=== PATIENT | male | born 1950 | race Caucasian/White ===

== ENCOUNTER 2016-04-25 10:51 | Inpatient (IN) | payer OTHER ==
[2016-04-21 11:08] LABS: HEMATOCRIT 37.3 % (40.0-51.0); HEMOGLOBIN 12.9 g/dL (13.6-17.8)
[2016-04-21 11:20] LABS: BUN (BLOOD UREA NITROGEN) 18 MG/DL (6-23); CHLORIDE, SERUM 102 MMOL/L (96-112); CO2 (CARBON DIOXIDE) 29 MMOL/L (24-34); CREATININE 1.13 MG/DL (0.70-1.30); GFR AFRICAN AMERICAN 80 ML/MIN (>=60); GFR NON AFRICAN AMERICAN 69 ML/MIN (>=60); GLUCOSE, SERUM 110 MG/DL (60-99); POTASSIUM, SERUM 4.3 MMOL/L (3.5-5.3); SODIUM, SERUM 140 MMOL/L (135-148)
--- NOTE | ~2016-04-25 | OP ---
Record Of Operation [facility] [address] [place]. [address] NAME: ALIA METZ : 54 STATUS : ADM IN PAT#: [id number] AGE: 65 ADM/REG DATE : 04/25/16 MR#: [id number] REPORT SERV DATE: 04/28/16 DICTATED BY: SOLANGE LANTIGUA II DATE: 04/27/16 REPORT STATUS : Draft TRANSCRIBED BY: MODL DATE: 04/27/16 DATE OF PROCEDURE: 04/25/2016 PREOPERATIVE DIAGNOSES: 1. L1-L2 focal kyphosis with degenerative disk disease above previous L2-S1 fusion. 2. Adjacent segment degeneration, L1-L2 with associated focal kyphosis. 3. Sagittal imbalance. 4. History of failed spinal column stimulator trial, complicated by epidural abscess, thoracolumbar with subsequent laminectomy for evacuation. POSTOPERATIVE DIAGNOSES: 1. L1-L2 focal kyphosis with degenerative disk disease above previous L2-S1 fusion. 2. Adjacent segment degeneration, L1-L2 with associated focal kyphosis. 3. Sagittal imbalance. 4. History of failed spinal column stimulator trial, complicated by epidural abscess, thoracolumbar with subsequent laminectomy for evacuation. PROCEDURE: 1. T10-T11, T11-T12, T12-L1, L1, L2, posterior spinal arthrodesis. 2. Facetectomies including Hobson-Anthony osteotomies, L1-L2, T12-L1. 3. Posterior spinal instrumentation, T10-L2. 4. Use of local autograft, allograft substitute, and bone morphogenetic protein. 5. Use of the stereotactic spinal imaging system. SURGEON: Solange Lantigua M.D. IV FLUIDS: Two liters lactated Ringer's. ESTIMATED BLOOD LOSS: 300 mL. DRAINS: One. IMPLANTS: Alphatec. COMPLICATIONS: None. PREOPERATIVE HISTORY: This is a very friendly 65-year-old gentleman, who reports increasing low back pain. He reports the pain is higher than it used to be. He reports that he is unable to stand straight up. He reports this became worse following his irrigation and debridement for his thoracolumbar epidural abscess. Unfortunately, after his spinal column stimulator lead trial, he developed an epidural abscess. Overall, his focal kyphosis at L1- L2 appears to be largely degenerative, but with a component of likely post laminectomy instability. We discussed the pros and cons of surgery. He has a very difficult and complicated surgical past and overall, he has continued to perceiver and do his best at improving. He is overall functional and I applauded him on his efforts despite his complicated surgical past. Record Of Operation [facility] [place]. [address] NAME: ALIA METZ : 54 STATUS : ADM IN PAT#: [id number] AGE: 65 ADM/REG DATE : 04/25/16 MR#: [id number] REPORT SERV DATE: 04/28/16 DICTATED BY: SOLANGE LANTIGUA II DATE: 04/27/16 REPORT STATUS : Draft TRANSCRIBED BY: MADYSON DATE: 04/27/16 DESCRIPTION OF PROCEDURE: After informed consent was obtained, the patient was brought to the operating room at his request and general anesthesia achieved. He was placed in the prone position and the back was prepped and draped in a sterile fashion. The midline incision was made from approximately T9 down to L3. Subperiosteal exposure was completed from T10 down to L3. At this point, we then placed the stereotactic spinal clamp onto T9 and the intraoperative CT scan was completed, and stereotactic guidance then used throughout the remainder of the case. At this point, we then began placing pedicle screws. We placed pedicle screws from T10 down to L1 on the right and down to L2 on the left. We then repeated the CT scan and acceptable positioning noted of the pedicle screws. At this point, the Hobson-Anthony osteotomies including facetectomies were performed for sagittal balance reasons at T12-L1 and L1-L2. The wide decompression was performed, including resection of the pars. This increased the flexibility of the kyphosis and overall, I felt would allow for a better correction following under contouring of the rods. At this point, the rods were then under contoured and the [employer] tiff to tiff connectors employed. We attached these tiff to tiff connectors bilaterally to allow continuation of the construct up to T10 so as to avoid having to dissect down to S1. At this point, the final tightening was performed and again, the under contouring of the rods performed and a very reasonable sagittal correction obtained. At this point, copious irrigation was performed. The decortication was now performed at T10, T11, T12, L1 and L2. Local autograft, allograft substitute, and bone morphogenetic protein were then placed bilaterally. A deep drain was placed followed by standard closure, and the patient was then extubated and transferred to PACU in stable condition. SAMANTA/MADYSON Solange Lantigua II, M.D. / [id number] CC: Nohemi Evans II, N.P.
--- NOTE | ~2016-04-25 | CN ---
Consultation Report [facility] [id number] [place]. [address] NAME: ALIA CHRISTINE : 54 STATUS : DIS IN PAT#: [id number] AGE: 65 ADM/REG DATE : 04/25/16 MR#: [id number] REPORT SERV DATE: 05/10/16 DICTATED BY: JAMES YBARRA DATE: 05/10/16 REPORT STATUS : Draft TRANSCRIBED BY: MODElizabeth DATE: 05/10/16 GI CONSULTATION NOTE DATE OF CONSULTATION: 04/30/2016 REASON FOR CONSULTATION: Dysphagia. HISTORY OF PRESENT ILLNESS: Mr. Christine is a 65-year-old gentleman with a history of kyphosis, encephalopathy, and reflux disease. GI has been consulted for further evaluation of his dysphagia. He reports difficulty swallowing with impact sensation as well as some mild regurgitation, which has been a chronic issue for him. No swallowing study has been done, however, this admission. PAST MEDICAL HISTORY: Kyphosis, encephalopathy, gastroesophageal reflux disease. FAMILY HISTORY: Noncontributory. MEDICATIONS: Reviewed. ALLERGIES: REVIEWED. PHYSICAL EXAMINATION: VITAL SIGNS: The patient is afebrile. His vital signs are stable. GENERAL: The patient is awake, alert, well developed, well nourished. HEENT: Atraumatic, normocephalic. Anicteric. Mucous membranes moist. CARDIAC: S1, S2. CHEST: Clear. ABDOMEN: Soft, obese, nontender, nondistended. Bowel sounds normoactive. LABORATORY DATA: Reviewed. IMPRESSION AND PLAN: Dysphagia of unclear etiology. Indeterminate whether this has oropharyngeal versus esophageal. Would recommend schedule a modified barium swallow to see if he has some oropharyngeal contribution or factor precipitating leading towards his symptoms especially given his history of kyphosis and encephalopathy. I have taken the liberty of ordering a modified barium swallow with speech pathology. I discussed this with the patient and his nurse. Questions and concerns were addressed. We will continue to follow. ZAYNAB/MADYSON James Consultation Report [facility] [id number] [place]. [address] NAME: ALIA CHRISTINE : 54 STATUS : DIS IN PAT#: [id number] AGE: 65 ADM/REG DATE : 04/25/16 MR#: [id number] REPORT SERV DATE: 05/10/16 DICTATED BY: JAMES YBARRA DATE: 05/10/16 REPORT STATUS : Draft TRANSCRIBED BY: MODL DATE: 05/10/16 MD Ailyn / [id number] CC: Nohemi Evans II, N.P.
--- NOTE | ~2016-04-25 | DS ---
Discharge Summary [facility] [address] [place]. [address] NAME: ALIA METZ : 54 STATUS : DIS IN PAT#: [id number] AGE: 65 ADM/REG DATE : 04/25/16 MR#: [id number] REPORT SERV DATE: 05/15/16 DICTATED BY: SOLANGE LANTIGUA II DATE: 05/14/16 REPORT STATUS : Draft TRANSCRIBED BY: MODElizabeth DATE: 05/14/16 Data Collection from hospitalization DISCHARGE DIAGNOSES: 1. L1-L2 focal kyphosis with degenerative disk disease above previous L2-S1 fusion. 2. Adjacent segment degeneration, L1-L2 with associated focal kyphosis. 3. Sagittal imbalance. 4. History of failed spinal column stimulator trial complicated by epidural abscess, thoracolumbar with subsequent laminectomy for evacuation. 5. Hypertension. 6. Former smoker. 7. Gastroesophageal reflux disease. 8. Osteoarthritis. CONSULTATIONS: 1. Teresa Robertson M.D. 2. Violette Perez M.D. PROCEDURES: 1. T10-T11, T11-T12, T12-L1, and L1 and L2 posterior spinal arthrodesis. Facetectomies including Hobson-Anthony osteotomy L1-L2, T12-L1. Posterior spinal instrumentation T10- L2. Use of local autograft, allograft substitute, and bone morphogenic protein. Use of stereotactic spinal imaging system 04/25/2016. 2. CT scan of the brain without contrast 04/27/2016. 3. CTA of the chest 04/27/2016. 4. Barium swallow esophagram 04/28/2016. 5. Modified barium swallow study 05/01/2016. 6. MRI of the brain without contrast 05/02/2016. 7. MRAG of the head without contrast 05/02/2016. 8. MRAG of the head of the neck with contrast 05/02/2016. 9. Modified barium swallow study 05/05/2016. PATHOLOGY: Bone and tissue; lumbar spine-dense fibrous connective tissue, focally atrophic skeletal muscle and bone present. DISCHARGE MEDICATIONS: Baclofen 20 mg three times a day, Butrans one patch topically every seven days, Catapres 0.1 mg twice a day, Neurontin 900 mg three times a day, Medrol one package as directed, Movantik 25 mg daily, Roxicodone 15 mg every four hours as needed, potassium gluconate one tablet daily, Phenergan 25 mg every six hours as needed, Mestinon 60 mg three times a day, Zantac 300 mg twice a day, Carafate 1 g before meals and at bedtime, Flomax 0.4 mg daily, and Ambien 10 mg at bedtime. CONDITION AT DISCHARGE: Stable. DISPOSITION: The patient was discharged home on a pureed diet with activities as instructed. He would follow up with me on 05/19/2016. HOSPITAL COURSE: This is a 65-year-old man who had been complaining of thoracic and lumbar- Discharge [address] [address] NAME: ALIA METZ : 54 STATUS : DIS IN PAT#: [id number] AGE: 65 ADM/REG DATE : 04/25/16 MR#: [id number] REPORT SERV DATE: 05/15/16 DICTATED BY: SOLANGE LANTIGUA II DATE: 05/14/16 REPORT STATUS : Draft TRANSCRIBED BY: MADYSON DATE: 05/14/16 related symptoms. His symptoms are located at the mid and lower back and he had associated numbness and tingling. The patient reports that they were seen in the office three weeks prior to this admission. He reported the pain level as a 7 on a scale of 0 to 10. The patient has low back pain and lower extremity radiculopathy as well as focal kyphosis above the old fusion and sagittal imbalance. Treatment options were discussed and it was elected to proceed with surgical intervention. He was admitted to the hospital at this time for further evaluation and treatment. Upon admission, he was taken to the operating room where he underwent the above-mentioned procedure. He tolerated this well. There were no complications. On postop day 1, the patient did not want to participate with Physical Therapy. On 04/27/2016, he was seen by Dr. Violette Perez for rapid response. The patient said "I am choking." The patient was then examined at the bedside, and he did complain of severe choking sensation in the throat, but no chest pain. He seemed extremely anxious and wanted to sit up because lying down made him dizzy, choking sensation even more. At his bedside, he denied any headaches, chest pain, shortness of breath, abdominal pain, nausea, or vomiting. He said he felt like throwing up and nothing was coming up. He seemed to be in extreme distress. He was given Ativan to calm him down, so that he could lie back. He suspected that the patient may have acute coronary syndrome/acute stroke. An EKG did not show any evidence of acute ST-T changes. There was a lot of tremulousness noted on the EKG. BMP and troponin I came back within fairly normal limits. He had a drop in his H and H. a CT scan of the brain without contrast was performed as well as a CTA of the chest. The patient did improve with Ativan. On 04/28/2016, MS Contin was added to his regimen. He continued to complain of a choking sensation. Barium swallow esophagram was performed. He had a mild left facial droop, but no other deficits. MRI of the brain was requested. Dysphagia resolved. He was evaluated by Physical Therapy. He was seen by Dr. Maggie Wynn. The patient's symptoms had improved with IV Ativan. He denied any focal weakness. T-max was 100. The encephalopathy had resolved. On 04/30/2016, he complained of recurrent dysphagia. He complained of feeling like food was stuck in his throat. The patient was seen by Dr. Teresa Robertson regarding dysphagia. He reported difficulty swallowing with impact sensation as well as some mild regurgitation, which had been a chronic issue for him. No swallowing study had been done; however, during this admission, the dysphagia was of unclear etiology. It was indeterminate whether it was oropharyngeal versus esophageal. She recommended that we schedule a modified barium swallow to see if he had some oropharyngeal contribution or factor precipitating leading towards his symptoms, especially given the history of kyphosis and encephalopathy. On 05/01/2016, a modified barium swallow study was performed. He still complained of difficulty swallowing due to a dry mouth. He also complained of nausea after taking Roxicodone. The CT scan of the brain had been negative. Modified barium swallow study was unremarkable. He could swallow clear liquids without difficulty. He had difficulty with solids due to a dry mouth. He complained of mucus that was thick and yellow. Speech- language pathology had evaluated the patient as well aspiration precautions remained in place. On 05/02/2016, he said he was feeling much better. He had been able to ambulate in the mensah a couple of times. Flomax was added to his regimen for urinary retention. A Nazario catheter was in place. He did complain of some constipation. He was no longer complaining of a sore throat. An MRI of the brain without contrast was performed as well as an MRAG of the head without contrast and MRAG of the neck without contrast. The next day, he Discharge Summary [facility] [address] [place]. [address] NAME: ALIA METZ : 54 STATUS : DIS IN PAT#: [id number] AGE: 65 ADM/REG DATE : 04/25/16 MR#: [id number] REPORT SERV DATE: 05/15/16 DICTATED BY: SOLANGE LANTIGUA II DATE: 05/14/16 REPORT STATUS : Draft TRANSCRIBED BY: MADYSON DATE: 05/14/16 complained of some low back pain. He had no nausea or vomiting. He did have a bowel movement, which improved his abdominal pain. He was ambulating with Physical Therapy. Nazario catheter was in place. Flomax was continued. He reported improved swallowing until his recent pain medications. His T-max was 99.1. Bedside dysphagia screening would be performed as well as a repeat modified barium swallow study. Dysphagia screening was completed. The patient had no difficulty swallowing at this time. On 05/04/2016, he said he was feeling better. He tolerated his pureed diet. Bladder training was going to be performed. He still had some difficulty with thick items, and but no coughing or choking. Mestinon and Solu-Medrol were continued for now. He had no chest pain or shortness of breath. The next day, he was stable except for his dysphagia. Modified barium swallow study was performed. Aspiration precautions remained in place. He continued to exhibit limited oropharyngeal muscle range of motion. Discharge planning was performed. Solu-Medrol was discontinued. Mestinon was continued. He appeared comfortable. His blood pressure was controlled. On 05/06/2016, he remained stable. He was alert and cooperative. He had no focal deficits. He said his swallowing had improved. Discharge instructions were given. Prednisone was being tapered. Due to his improved and stable condition, he was discharged home with the above-stated instructions. Information collected by: Savanah Smith I submit the above information as my discharge summary. XANDER/MADYSON Solange Lantigua II, M.D. / [id number] CC: Nohemi Evans II, N.P. Camille Sommer, MD
--- NOTE | ~2016-04-25 | CN ---
Consultation Report [facility] [address] [place]. [address] NAME: ALIA METZ : 54 STATUS : ADM IN PAT#: [id number] AGE: 65 ADM/REG DATE : 04/25/16 MR#: [id number] REPORT SERV DATE: 04/27/16 DICTATED BY: JUDITH NUGENT DATE: 04/27/16 REPORT STATUS : Draft TRANSCRIBED BY: MODL DATE: 04/27/16 CONSULTATION DATE OF CONSULTATION: 04/27/2016 REASON FOR CONSULTATION: Rapid response. HISTORY OF PRESENT ILLNESS: I was rounding on other patients on 3 , when I was called to respond to a rapid response as this patient said that "I am choking." I examined the patient at his bedside and the patient did complain of severe choking sensation in his throat, no chest pain, and seemed extremely anxious wanting to sit up, because lying down made him did the choking sensation even more. At his bedside, the patient denied any headaches chest pain, shortness of breath, abdominal pain, nausea, vomiting. He said that he is feeling like throwing up, but nothing is coming up. The patient has been admitted for lumbar spinal surgery and had decompression of the lumbar spine at L4-L5 nerve roots. Dr. Lantigua is the primary surgeon. The patient seems to be alert, but seems to be in extreme distress right now complaining of this choking sensation. We gave him 2 mg of Ativan to calm him down so that he could lay back, as I was suspecting an acute coronary syndrome/acute stroke in this patient. We were able to get an EKG on him that did not show any evidence of acute ST-T changes. There was a lot of tremulousness noted on the EKG. We ordered stat labs including BMP and troponin I, which came back within fairly normal limits. The only thing I see in his labs is a drop in his H and H. PHYSICAL EXAMINATION: VITAL SIGNS: On examination, his vital signs are stable. His blood pressure is fine, his oxygen saturation was low in the beginning when the nurse called a rapid response on him and was only 84% on room air, but has come back up to about 95% with 4 L of oxygen right now. A stat ABG that was ordered also shows PO2 of almost 80. HEENT: Unremarkable. As I was examining the patient at the bedside, his left arm felt limp and he was unable to squeeze my hand, as strongly with his left hand as he did with his right hand. There may have been a slight facial droop that I noticed on the left side of the face also. With a slight facial droop and a slight left arm weakness. I am suspecting acute stroke in this patient. CARDIOVASCULAR: S1 and S2 appreciated. Sinus rhythm. No murmurs, rubs, or gallops noted. RESPIRATORY: Clear lungs. No rales or rhonchi noted. ABDOMEN: Soft, nontender. Bowel sounds are appreciated. EXTREMITIES: There is no edema. BACK: I examined the wound there seems to be some oozing from the dressing and the dressing on the lumbar spinal surgical incision is soaked a little bit with blood. DIAGNOSTIC DATA: We got a chest x-ray on him stat portable which is also clear at this time. Consultation Report [address] [place]. [address] NAME: ALIA METZ : 54 STATUS : ADM IN [facility]#: [id number] AGE: 65 ADM/REG DATE : 04/25/16 MR#: [id number] REPORT SERV DATE: 04/27/16 DICTATED BY: JUDITH NUGENT DATE: 04/27/16 REPORT STATUS : Draft TRANSCRIBED BY: MADYSON DATE: 04/27/16 ASSESSMENT AND PLAN: 1. Acute choking sensation in this patient with near syncope, with the patient extremely anxious. We will go ahead and get a CT scan of the head stat to rule out stroke, neurologist has already been called. 2. We will also get a CT angiogram to rule out PE/dissecting aneurysm in this patient. We will also go ahead and give him 1 unit of PRBCs, give him supportive and symptomatic care at this time, and I will follow the patient. RRA/MODL Judith Nugent M.D. / [id number] CC: Vinicio Lantigua II, M.D.
[~2016-04-25 10:51] MED LIST: AMB10 PO; AVINZA30 PO; BACLOFEN20 MG PO; BEN25 PO; BUTRANS1 EAC2 TOP; CAT1 PO; FLEX PO; HCTZ25B PO; NAP500 PO; NEUR300 PO; NORCO1 TAB PO; P20 PO; PERCOCET 10/3251 TAB PO; POTASSIUM GLUCO99 MG PO; RANITIDINE300 MG PO; SEPTRA DS1 TAB PO; ULTRAM50 PO; VICODINTAB PO; VITAMIN B-122500 MCG SL
[2016-04-27 10:40] LABS: BUN (BLOOD UREA NITROGEN) 21 MG/DL (6-23); CHLORIDE, SERUM 113 MMOL/L (96-112); GFR AFRICAN AMERICAN 105 ML/MIN (>=60); GFR NON AFRICAN AMERICAN 91 ML/MIN (>=60); GLUCOSE, SERUM 109 MG/DL (60-99); POTASSIUM, SERUM 3.7 MMOL/L (3.5-5.3); SODIUM, SERUM 146 MMOL/L (135-148); TROPONIN I <0.02 NG/ML (<0.05)
[2016-04-27 10:43] LABS: CO2 (CARBON DIOXIDE) 21 MMOL/L (24-34)
[2016-04-27 10:55] LABS: CALCIUM, SERUM 6.8 MG/DL (8.5-10.4)
[2016-04-27 11:05] LABS: BASOPHILS 0 %; EOSINOPHILS 0 %; HEMATOCRIT 23.5 % (40.0-51.0); HEMOGLOBIN 7.9 g/dL (13.6-17.8); IMMATURE GRANULOCYTES 0.2 %; IMMATURE GRANULOCYTES ABSOLUTE 0.03 10/3/uL (0.0-0.11); LYMPHOCYTES 8.2 %; LYMPHOCYTES ABSOLUTE 1.05 10/3/uL (0.67-4.30); MANUAL DIFF NO %; MEAN CORPUS HGB CONC 33.6 g/dL (32.0-36.0); MEAN CORPUSCULAR HEMOGLOB 33.5 pg (26.0-34.0); MEAN CORPUSCULAR VOLUME 99.6 fL (80-100); MEAN PLATELET VOLUME 9.5 fL (9.2-13.0); MONOCYTES 7.7 %; MONOCYTES ABSOLUTE 0.98 10/3/uL (0.21-1.20); NEUTROPHILS 83.9 %; NEUTROPHILS ABSOLUTE 10.69 10/3/uL (2.02-8.40); PLATELET COUNT 174 10/3/uL (150-400); RBC DISTRIBUTION WIDTH 13.6 % (12.0-16.0); RED CELL COUNT 2.36 10/6/uL (4.7-6.1); WHITE BLOOD CELLS 12.8 10/3/uL (4.5-10.5)
[2016-04-27 11:11] LABS: SGOT(AST) 31 U/L (5-40); SGPT(ALT) 22 U/L (5-65)
[2016-04-27 11:14] LABS: ALBUMIN 2.7 G/DL (3.5-5.0); ALKALINE PHOSPHATASE 48 U/L (45-117); GLOBULIN 2.6 G/DL (2.5-4.1); TOTAL BILIRUBIN 0.2 MG/DL (0-1.2); TOTAL PROTEIN 5.3 G/DL (6.0-8.5)
[2016-04-28 03:58] LABS: BASOPHILS 0 %; EOSINOPHILS 0.2 %; EOSINOPHILS ABSOLUTE 0.02 10/3/uL (0.0-0.53); IMMATURE GRANULOCYTES 0.5 %; IMMATURE GRANULOCYTES ABSOLUTE 0.06 10/3/uL (0.0-0.11); LYMPHOCYTES 18.2 %; LYMPHOCYTES ABSOLUTE 2.25 10/3/uL (0.67-4.30); MEAN CORPUS HGB CONC 33.4 g/dL (32.0-36.0); MEAN CORPUSCULAR HEMOGLOB 32.2 pg (26.0-34.0); MEAN PLATELET VOLUME 9.7 fL (9.2-13.0); MONOCYTES ABSOLUTE 1.11 10/3/uL (0.21-1.20); NEUTROPHILS 72.1 %; NEUTROPHILS ABSOLUTE 8.95 10/3/uL (2.02-8.40); PLATELET COUNT 198 10/3/uL (150-400); RBC DISTRIBUTION WIDTH 14.4 % (12.0-16.0); WHITE BLOOD CELLS 12.4 10/3/uL (4.5-10.5)
[2016-04-28 04:09] LABS: BUN (BLOOD UREA NITROGEN) 24 MG/DL (6-23); CHLORIDE, SERUM 104 MMOL/L (96-112); CREATININE 1.09 MG/DL (0.70-1.30); GFR AFRICAN AMERICAN 83 ML/MIN (>=60); GFR NON AFRICAN AMERICAN 72 ML/MIN (>=60); POTASSIUM, SERUM 3.9 MMOL/L (3.5-5.3); SODIUM, SERUM 143 MMOL/L (135-148)
[2016-04-28 04:10] LABS: CALCIUM, SERUM 8.5 MG/DL (8.5-10.4); CO2 (CARBON DIOXIDE) 28 MMOL/L (24-34); GLUCOSE, SERUM 131 MG/DL (60-99); HEMATOCRIT 32.6 % (40.0-51.0); HEMOGLOBIN 10.9 g/dL (13.6-17.8); RED CELL COUNT 3.38 10/6/uL (4.7-6.1)
[2016-04-28 04:11] LABS: MANUAL DIFF NO %; MEAN CORPUSCULAR VOLUME 96.4 fL (80-100)
[2016-04-29 09:39] LABS: HEMATOCRIT 29.9 % (40.0-51.0); HEMOGLOBIN 10.2 g/dL (13.6-17.8)
[2016-04-29 09:53] LABS: BUN (BLOOD UREA NITROGEN) 23 MG/DL (6-23); CALCIUM, SERUM 8.5 MG/DL (8.5-10.4); CHLORIDE, SERUM 100 MMOL/L (96-112); CO2 (CARBON DIOXIDE) 29 MMOL/L (24-34); CREATININE 1.09 MG/DL (0.70-1.30); GFR AFRICAN AMERICAN 83 ML/MIN (>=60); GFR NON AFRICAN AMERICAN 72 ML/MIN (>=60); GLUCOSE, SERUM 118 MG/DL (60-99); POTASSIUM, SERUM 4.1 MMOL/L (3.5-5.3); SODIUM, SERUM 138 MMOL/L (135-148)
[2016-05-01 11:20] LABS: BASOPHILS 0.1 %; BASOPHILS ABSOLUTE 0.01 10/3/uL (0.0-0.16); EOSINOPHILS 0.6 %; EOSINOPHILS ABSOLUTE 0.07 10/3/uL (0.0-0.53); HEMOGLOBIN 11.3 g/dL (13.6-17.8); IMMATURE GRANULOCYTES 0.3 %; IMMATURE GRANULOCYTES ABSOLUTE 0.04 10/3/uL (0.0-0.11); LYMPHOCYTES ABSOLUTE 1.07 10/3/uL (0.67-4.30); MEAN CORPUS HGB CONC 33.6 g/dL (32.0-36.0); MEAN CORPUSCULAR HEMOGLOB 32.3 pg (26.0-34.0); MEAN PLATELET VOLUME 9.4 fL (9.2-13.0); MONOCYTES 9.8 %; MONOCYTES ABSOLUTE 1.17 10/3/uL (0.21-1.20); NEUTROPHILS 80.2 %; NEUTROPHILS ABSOLUTE 9.55 10/3/uL (2.02-8.40); PLATELET COUNT 252 10/3/uL (150-400); RBC DISTRIBUTION WIDTH 12.9 % (12.0-16.0); WHITE BLOOD CELLS 11.9 10/3/uL (4.5-10.5)
[2016-05-01 11:21] LABS: HEMATOCRIT 33.6 % (40.0-51.0); MANUAL DIFF NO %
[2016-05-01 12:19] LABS: PROCALCITONIN 0.05 ng/mL (<0.5)
[2016-05-01 12:22] LABS: BUN (BLOOD UREA NITROGEN) 13 MG/DL (6-23); CALCIUM, SERUM 8.8 MG/DL (8.5-10.4); CHLORIDE, SERUM 96 MMOL/L (96-112); CO2 (CARBON DIOXIDE) 31 MMOL/L (24-34); CREATININE 0.91 MG/DL (0.70-1.30); FOLATE 15.8 NG/ML (>5.2); FREE T4 0.98 NG/DL (0.76-1.46); GFR AFRICAN AMERICAN 104 ML/MIN (>=60); GFR NON AFRICAN AMERICAN 89 ML/MIN (>=60); GLUCOSE, SERUM 118 MG/DL (60-99); POTASSIUM, SERUM 4.1 MMOL/L (3.5-5.3); SODIUM, SERUM 135 MMOL/L (135-148); ULTRASENSITIVE TSH 0.391 MCIU/ML (0.358-3.740)
[2016-05-03 05:47] LABS: BUN (BLOOD UREA NITROGEN) 16 MG/DL (6-23); CALCIUM, SERUM 8.6 MG/DL (8.5-10.4); CHLORIDE, SERUM 103 MMOL/L (96-112); CO2 (CARBON DIOXIDE) 25 MMOL/L (24-34); CREATININE 0.92 MG/DL (0.70-1.30); GFR AFRICAN AMERICAN 102 ML/MIN (>=60); GFR NON AFRICAN AMERICAN 88 ML/MIN (>=60); GLUCOSE, SERUM 95 MG/DL (60-99); POTASSIUM, SERUM 4.2 MMOL/L (3.5-5.3); SODIUM, SERUM 140 MMOL/L (135-148)
[2016-05-06] MEDS ORDERED: MEDROLPAK4 PO (15:20)
[2016-05-06] MEDS ORDERED: ROXICODONE15 MG PO (15:21)
[2016-05-06] MEDS ORDERED: MOVANTIK25 MG PO (15:21)
[2016-05-06] MEDS ORDERED: FLOMAX4 PO (15:21)
[2016-05-06] MEDS ORDERED: SUCR PO (15:22)
[2016-05-06] MEDS ORDERED: PR25 PO (15:22)
[2016-05-06] MEDS ORDERED: PYRID60 PO (15:23)
[2016-05-10 20:12] LABS: ACETYLCHOLINE REC BINDING AB <0.30 nmol/L (<0.31); ACETYLCHOLINE RECEPT BLOCK AB <15 % (<15); ACETYLCHOLINE RECEPTOR MOD AB 12 % (<32); STRIATED MUSCLE ANTIBODY Negative (NEG); STRIATED MUSCLE ANTIBODY TITER ND
== END 2016-05-06 16:59 | disposition home or self-care (01) | DRG 456 ==
LOC: SDC/OF 10:51 → PACU 18:04 → 3SO 20:13 → MIC 04-27 10:38 → 3SO 04-27 11:33
PROVIDERS: Hospitalist; Nurse Practitioner; Orthopaedic Surgery; Psychiatry & Neurology Neurology
PROC: 0SG0071 Fusion of Lumbar Vertebral Joint with Autologous Tissue Substitute, Posterior Approach, Posterior Column, Open Approach (ICD-10-PCS; 2016-04-25)
PROC: 4A11X4G Monitoring of Peripheral Nervous Electrical Activity, Intraoperative, External Approach (ICD-10-PCS; 2016-04-25)
PROC: 0RG7071 Fusion of 2 to 7 Thoracic Vertebral Joints with Autologous Tissue Substitute, Posterior Approach, Posterior Column, Open Approach (ICD-10-PCS; principal; 2016-04-25 13:15)
PROC: 0RGA071 Fusion of Thoracolumbar Vertebral Joint with Autologous Tissue Substitute, Posterior Approach, Posterior Column, Open Approach (ICD-10-PCS; 2016-04-25 13:15)
PROC: 30233N1 Transfusion of Nonautologous Red Blood Cells into Peripheral Vein, Percutaneous Approach (ICD-10-PCS; 2016-04-27)
DX: M41.86 Other forms of scoliosis, lumbar region (principal); G93.40 Encephalopathy, unspecified; M51.36 Other intervertebral disc degeneration, lumbar region; I10 Essential (primary) hypertension; R13.10 Dysphagia, unspecified; K21.9 Gastro-esophageal reflux disease without esophagitis
CPT/HCPCS: 36415; 36600; 70450; 70544; 70548; 70551; 71010; 71275; 74000; 74220; 74230; 80048; 80053; 82140; 82330; 82533; 82607; 82746; 82803; 82947; 82962; 83519; 83519-59; 83735; 84132; 84145; 84295; 84439; 84443; 84484; 85014; 85018; 85025; 86255; 86850; 86900; 86901; 86920; 87641; 88304; 88311; 92611-GN; 93005; 97110-GP; 97116-GP; 97161-GP; 97530-GP; A9270-GY; A9577; C1713; J0690; J1170; J1644; J1885; J2250; J2270; J2405; J2550; J2710; J2930; J3010; J3370; P9016; Q9967